=== PATIENT | male | born 1955 | race Caucasian/White ===

== ENCOUNTER → 2023-09-15 08:29 | Outpatient (REF) | payer MEDICARE, SELFPAY | LOC: HWRAD 08:29 | PROVIDERS: ATTENDING PHYSICIAN Urology; FAMILY PHYSICIAN Physician Assistant Medical | DX: R31.0 Gross hematuria (principal); N20.0 Calculus of kidney | CPT/HCPCS: 74018 ==

== ENCOUNTER → 2024-02-23 09:26 | Outpatient (REF) | payer MEDICARE, SELFPAY | LOC: HWRAD 09:26 | PROVIDERS: ATTENDING PHYSICIAN Internal Medicine Gastroenterology; FAMILY PHYSICIAN Physician Assistant Medical | DX: K74.60 Unspecified cirrhosis of liver (principal) | CPT/HCPCS: 76700 ==

== ENCOUNTER 2024-03-29 06:21 | Day surgery (SDC) | payer MEDICARE, SELFPAY ==
[2024-03-29 08:28] LABS: Glucose - Point of Care 100 mg/dl (70-99)
== END 2024-03-29 10:06 | disposition home or self-care (01) ==
LOC: GI 06:21
PROVIDERS: ATTENDING PHYSICIAN Internal Medicine Gastroenterology
DX: R12 Heartburn (principal); K74.60 Unspecified cirrhosis of liver; K76.6 Portal hypertension; K44.9 Diaphragmatic hernia without obstruction or gangrene; K31.7 Polyp of stomach and duodenum; K31.89 Other diseases of stomach and duodenum; I85.10 Secondary esophageal varices without bleeding
CPT/HCPCS: 43239; 88305; 82962

== ENCOUNTER → 2024-05-27 08:59 | Outpatient (REF) | payer MEDICARE, SELFPAY | LOC: HWRAD 08:59 | PROVIDERS: ATTENDING PHYSICIAN Urology; FAMILY PHYSICIAN Physician Assistant | DX: N20.0 Calculus of kidney (principal) | CPT/HCPCS: 74018 ==

== ENCOUNTER → 2024-09-10 08:19 | Outpatient (REF) | payer MEDICARE, SELFPAY | LOC: MRI 3T 08:19 | PROVIDERS: ATTENDING PHYSICIAN Internal Medicine Gastroenterology; FAMILY PHYSICIAN Physician Assistant | DX: K74.60 Unspecified cirrhosis of liver (principal) | CPT/HCPCS: 70030; 74183; A9581 ==

== ENCOUNTER → 2024-11-20 08:31 | Outpatient (REF) | payer MEDICARE, SELFPAY | LOC: HWRAD 08:31 | PROVIDERS: ATTENDING PHYSICIAN Urology; FAMILY PHYSICIAN Physician Assistant | DX: N20.0 Calculus of kidney (principal) | CPT/HCPCS: 74018 ==